=== PATIENT | female | born 1995 | race African-American/Black ===

== ENCOUNTER 2018-04-30 08:26 | Emergency (ER) | payer SELFPAY ==
[~2018-04-30] VITALS: Ht 167.6 cm; Wt 61.0 kg
[2018-04-30] MEDS ORDERED: SODIUM CHLORIDE 0.9% 1,000 ML IV ONE (09:30)
[2018-04-30] MEDS ORDERED: PANTOPRAZOLE SODIUM 40 MG/VIAL IV STA (09:30)
[2018-04-30] MEDS ORDERED: ONDANSETRON HCL 4MG/2ML VIAL IV ONE (09:30)
[2018-04-30 10:01] LABS: HEMATOCRIT. 39.9 % (36.0-48.0); MEAN CORPUSCULAR HEMOGLOBIN 26.6 pg (28.0-32.0); MEAN CORPUSCULAR VOLUME 81.9 fL (81.0-99.0); MEAN PLATELET VOLUME 8.7 fl (7.4-10.4); PLATELET 246 x1000/uL (130-400); RED BLOOD CELL COUNT 4.87 mill/uL (4.2-5.4); RED CELL DISTRIBUTION WIDTH 13.7 % (11.6-14.6)
[2018-04-30 10:04] LABS: CHLORIDE 106 mEq/L (98-107)
[2018-04-30 10:09] LABS: HCG SCREEN NEGATIVE
[2018-04-30] MEDS ORDERED: MORPHINE SULFATE 4 MG/ML CPJ (NOT FOR IM USE) IV ONE (10:30)
[2018-04-30 10:54] LABS: PLATELET ESTIMATE NORMAL
[2018-04-30 11:57] VITALS: BP 106/72
== END 2018-04-30 12:01 | disposition home or self-care (01) ==
LOC: ER 08:38
DX: R11.10 Vomiting, unspecified (principal); R19.7 Diarrhea, unspecified; F17.200 Nicotine dependence, unspecified, uncomplicated
CPT/HCPCS: 36415; 80053; 84703; 85025; 85610; 93005; 96361; 96374; 96375; 99285; C9113; J2270; J2405; J7030

== ENCOUNTER 2020-07-10 00:12 | Emergency (ER) | payer BC, MEDICAID ==
[~2020-07-10] VITALS: Ht 167.6 cm; Wt 74.0 kg
[2020-07-10] MEDS ORDERED: CEFTRIAXONE 1 G PREMIX 50 ML IV ONE (00:45)
[2020-07-10] MEDS ORDERED: SODIUM CHLORIDE 0.9% 1000ML BAG (SEPSIS BOLUS) IV ONE (00:45)
[2020-07-10 01:45] LABS: BASOPHILS % 0.4 % (0.0-2.0); HEMATOCRIT. 38.6 % (36.0-48.0); HEMOGLOBIN. 12.7 g/dL (12.0-16.0); LYMPHOCYTES % 9.8 % (20.0-50.0); MEAN CORPUSCULAR HEMOGLOBIN 26.4 pg (28.0-32.0); MEAN CORPUSCULAR VOLUME 80.3 fL (81.0-99.0); MEAN PLATELET VOLUME 8.9 fl (7.4-10.4); MONOCYTES % 6.8 % (2.0-8.0); PLATELET 256 x1000/uL (130-400)
[2020-07-10 01:51] LABS: CHLORIDE 105 mEq/L (98-107)
[2020-07-10 01:52] LABS: CLARITY URINE TURBID (CLEAR); COLOR URINE YELLOW (YELLOW); KETONES URINE NEGATIVE (NEGATIVE); LEUKOCYTE ESTERASE URINE 3+ (NEGATIVE); NITRITE URINE NEGATIVE (NEGATIVE); OCCULT BLOOD URINE 3+ (NEGATIVE); PH URINE 5.5 (4.5-8.0); PROTEIN URINE 2+ (NEGATIVE); SPECIFIC GRAVITY URINE 1.014 (1.005-1.030); UROBILINOGEN URINE 0.2 E.U./dL (0.2-1.0)
[2020-07-10 01:55] LABS: HCG SCREEN NEGATIVE
[2020-07-10] MEDS ORDERED: KETOROLAC 60MG/2ML VIAL IM ONE (03:15)
[2020-07-10 05:47] VITALS: BP 111/66
== END 2020-07-10 05:50 | disposition home or self-care (01) ==
LOC: ER 00:12 → CANBEDREQ 06:42
DX: N83.209 Unspecified ovarian cyst, unspecified side (principal); N39.0 Urinary tract infection, site not specified; F12.90 Cannabis use, unspecified, uncomplicated
CPT/HCPCS: 36415; 71045; 76830; 76856; 80053; 81003; 83605; 83690; 84145; 84484; 84703; 85025; 87040; 87086; 93005; 96365; 96372; 99285; J0696; J1885; J7030

== ENCOUNTER 2021-06-13 19:01 | Observation (INO) | payer MEDICAID ==
[~2021-06-13] VITALS: Ht 167.6 cm; Wt 81.6 kg
[2021-06-13] MEDS ORDERED: LACTATED RINGERS 500 ML IV SCH (20:45)
[2021-06-13 21:20] LABS: CLARITY URINE CLEAR (CLEAR); COLOR URINE YELLOW (YELLOW); KETONES URINE NEGATIVE (NEGATIVE); LEUKOCYTE ESTERASE URINE TRACE (NEGATIVE); NITRITE URINE NEGATIVE (NEGATIVE); OCCULT BLOOD URINE NEGATIVE (NEGATIVE); PH URINE 6.5 (4.5-8.0); PROTEIN URINE NEGATIVE (NEGATIVE); SPECIFIC GRAVITY URINE 1.003 (1.005-1.030)
[2021-06-13] MEDS ORDERED: PREN1TAB23 PO (22:08)
== END 2021-06-13 22:35 | disposition home or self-care (01) ==
LOC: 8 EST LDRP 19:01
PROVIDERS: ADMIT Obstetrics & Gynecology; ATTEND Obstetrics & Gynecology
DX: O26.893 Other specified pregnancy related conditions, third trimester (principal); R10.30 Lower abdominal pain, unspecified; O99.891 Other specified diseases and conditions complicating pregnancy; M79.10 Myalgia, unspecified site; Z20.822 Contact with and (suspected) exposure to COVID-19; Z3A.30 30 weeks gestation of pregnancy
CPT/HCPCS: 59025; 76805; 76818; 81003; 82731; 87426; G0378; 96360; 99281

== ENCOUNTER 2021-06-13 23:43 | Emergency (ER) | payer MEDICAID ==
[~2021-06-13] VITALS: Ht 167.6 cm; Wt 82.0 kg
[~2021-06-13 23:43] MED LIST: PREN1TAB23 PO
[2021-06-14] MEDS ORDERED: SODIUM CHLORIDE 0.9% 1,000 ML IV ONE (00:15)
[2021-06-14 01:20] VITALS: BP 108/65
== END 2021-06-14 01:30 | disposition home or self-care (01) ==
LOC: ER 23:43
DX: O98.513 Other viral diseases complicating pregnancy, third trimester (principal); U07.1 COVID-19; Z3A.30 30 weeks gestation of pregnancy
CPT/HCPCS: 96360; 99283; J7030